=== PATIENT | female | born 1995 | race Caucasian/White ===

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

== ENCOUNTER → 2017-04-19 | Outpatient (CLI) | payer OTHER | LOC: M LRY 11:38 | DX: M79.645 Pain in left finger(s) (principal) | CPT/HCPCS: 73140; G0463 ==

== ENCOUNTER → 2017-07-10 | Outpatient (CLI) | payer OTHER | LOC: M LRY 10:48 | DX: R10.9 Unspecified abdominal pain (principal) | CPT/HCPCS: 74018; 81002 ==

== ENCOUNTER 2017-12-04 10:52 | Emergency (ER) | payer OTHER ==
[2017-12-04] MEDS: ONDANSETRON 4 MG ORAL DISINTEGRATING TAB (Q0162 PER 1MG) PO (11:27)
[2017-12-04] MEDS: ACETAMINOPHEN 325 MG TAB PO (11:29)
[2017-12-04 11:38] LABS: CONTROL LINE UCG INT CTR LINE PRESENT; URINE PREG TEST NEGATIVE (NEGATIVE)
[2017-12-04 11:44] LABS: BASO % 0.3 % (0.0-1.0); EOS % 0.8 % (0.0-3.0); HEMATOCRIT 41.5 % (36.0-47.0); HEMOGLOBIN 13.9 g/dl (12.0-15.5); IMMATURE GRANULOCYTE % 0.4 % (0-3.0); LYMPH # 1.1 10^3/uL (1.5-6.5); LYMPH % 10.3 % (24.0-44.0); MEAN CORPUSCULAR HEMOGLOBIN 31.7 pg (27.0-33.0); MEAN CORPUSCULAR HGB CONC 33.5 g/dl (32.0-36.5); MEAN CORPUSCULAR VOLUME 94.5 fl (80.0-96.0); MONO % 9.5 % (0.0-5.0); NEUTROPHILS # 8.3 10^3/uL (1.8-7.7); NEUTROPHILS % 78.7 % (36.0-66.0); PLATELET COUNT, AUTOMATED 294 10^3/uL (150-450); RED BLOOD COUNT 4.39 10^6/uL (4.00-5.40); RED CELL DISTRIBUTION WIDTH 12.2 % (11.5-14.5); WHITE BLOOD COUNT 10.5 10^3/uL (4.0-10.0)
[2017-12-04 11:45] LABS: EOS # 0.1 10^3/uL (0.0-0.50)
[2017-12-04 12:05] LABS: ANION GAP 6 MEQ/L (8-16); BLOOD UREA NITROGEN 5 MG/DL (7-18); CALCIUM LEVEL 8.7 MG/DL (8.5-10.1); CARBON DIOXIDE LEVEL 28 MEQ/L (21-32); CHLORIDE LEVEL 108 MEQ/L (98-107); CREATININE FOR GFR 0.68 MG/DL (0.55-1.30); GLUCOSE, FASTING 83 MG/DL (70-100); POTASSIUM SERUM 4.5 MEQ/L (3.5-5.1); SODIUM LEVEL 142 MEQ/L (136-145)
[2017-12-04 12:08] LABS: KETONE, URINE AUTO RFX NEGATIVE (NEGATIVE); NITRITE, URINE AUTO RFX NEGATIVE (NEGATIVE); RBC, URINE AUTO RFX 63 /HPF (0-3); SPECIFIC GRAVITY UR AUTO RFX 1.006 (1.002-1.035); SQUAM EPITHELIAL CELL UR AURFX 5 /HPF (0-6)
[2017-12-04 12:33] LABS: LEUKOCYTE ESTERASE UR AUTO RFX 2+ (NEGATIVE); WBC, URINE AUTO RFX 90 /HPF (0-3)
== END 2017-12-04 13:07 | disposition home or self-care (01) ==
LOC: M ED 10:52
DX: N10 Acute pyelonephritis (principal); Z87.440 Personal history of urinary (tract) infections
CPT/HCPCS: Q0162

== ENCOUNTER → 2017-12-13 | Outpatient (REF) | payer OTHER ==
[2017-12-13 19:45] LABS: CONTROL LINE UCG INT CTR LINE PRESENT; URINE PREG TEST NEGATIVE (NEGATIVE)
[2017-12-13 20:08] LABS: CHLAMYDIA DNA AMPLIFICATION POSITIVE (NEGATIVE); GC DNA AMPLIFICATION NEGATIVE (NEGATIVE)
[2017-12-16 11:06] LABS: HIV 1&2 SCREEN CENTAUR NEGATIVE (NEGATIVE)
== END ==
LOC: M SFHCLERA 11:11
DX: N89.8 Other specified noninflammatory disorders of vagina (principal)

== ENCOUNTER 2018-01-09 17:05 | Emergency (ER) | payer OTHER ==
[2018-01-09] MEDS: ONDANSETRON 4 MG ORAL DISINTEGRATING TAB (Q0162 PER 1MG) PO (19:05)
== END 2018-01-09 19:20 | disposition home or self-care (01) ==
LOC: M ED 17:05
DX: J02.0 Streptococcal pharyngitis (principal)
CPT/HCPCS: Q0162